=== PATIENT | female | born 1985 | race Caucasian/White ===

== ENCOUNTER 2019-08-21 11:46 | Emergency (ER) | payer OTHER ==
--- OUTSIDE RECORDS SUMMARY | 2019-08-21 12:13 | XMS REPORT | Continuity of Care Document ---
:1985 External Reference #:[id number] Author Name Catalina Villegas PA Address [address] [place] [id number] Problems Active Problems Provider Date Insomnia Felton Villanueva DO Onset: 08/25/2011 Gastroesophageal reflux disease Felton Villanueva DO Onset: 06/09/2011 Tobacco user Felton Villanueva DO Onset: 06/09/2011 Bipolar disorder Felton Villanueva DO Onset: 06/09/2011 Social History Type Date Description Comments Sex Unknown ETOH Use Occasionally consumes alcohol Recreational Drug Use Denies Drug Use Tobacco Use Start: Unknown Heavy tobacco smoker (more than 10 cigarettes/day) Smoking Status Reviewed: 02/11/19 Heavy tobacco smoker (more than 10 cigarettes/day) Allergies, Adverse Reactions, Alerts Active Allergies Reaction Severity Comments Date Morphine Nausea 06/09/2011 Dust 10/05/2014 Eggs N/V 10/06/2014 Medications Active Medications SIG Qnty Indications Ordering Date Provider Albuterol Sulfate HFA 2 puffs every 17gm R05 Felton Villanueva, 06/24/2019 4-6 hours as DO 108(90Base) mcg/Act needed for Aerosol cough, wheezing, shortness of breath Fluticasone Propionate two sprays in 16gm R05 Felton Villanueva, 06/24/2019 each nostril DO 50mcg/Act Suspension once daily Nicotine Transdermal Apply one patch 28units Felton Villanueva, 06/20/2019 System Step 1 every 24 hours DO 21mg/24HR Patches 24HR Hydroxyzine HCL 1/2 to 1 pill by 30tabs Felton Villanueva, 03/11/2019 25mg mouth every 6 DO Tablets hours as needed anxiety Lamotrigine ER Take One Tablet 30tabs Felton Villanueva, 01/31/2019 100mg By Mouth AT DO Tablets ER 24HR Bedtime Selenium Sulfide apply nightly to Unknown 01/26/2019 2.5% affected skin Lotion and wash off in in the morning x 2 weeks Drysol apply to axillae 60ml Felton Villanueva, 12/15/2018 20% Solution once daily at DO night Bupropion Hydrochloride take three 90tabs F33.1 Felton Villanueva, 12/14/2018 ER (XL) tablets by mouth DO 150mg Tablets ER every day 24HR Ketoconazole apply to rash on 60gm Felton Villanueva, 11/15/2018 2% Cream the torso 2-3 DO times a day for up to 2 weeks Cyclobenzaprine HCL take one tablet 30tabs Felton Villanueva, 10/28/2017 10mg by mouth at DO Tablets bedtime as needed for muscle spasm Amitriptyline HCL Take One Tablet 30tabs G47.00 Felton Villanueva, 05/07/2017 25mg By Mouth AT DO Tablets Bedtime Ibuprofen 1-2 by mouth OTC Joseph, 09/29/2014 200mg Tablets every 6 hours Yany, [employer] with food or snack as needed pain Nexplanon Unknown 68mg Implant History Medications Fluticasone 1 spray each 16units J30.9 Joseph, 02/11/2019 - Propionate nostril daily Yany, [employer] 06/24/2019 50mcg/Act Suspension Medications Administered in Office Medication SIG Qnty Indications Ordering Provider Date PPD Injection Schedule, Nurses 04/05/2019 Immunizations CPT Code Status Date Vaccine Lot # [id number] Given 04/08/2019 Afluria Imunization Q2035 Given 06/07/2018 Afluria Imunization 50210 Given 06/09/2011 Tdap (Adacel) Ages 7 And Above Only [address] Given 06/09/2011 Afluria Or Fluvirin Flu Vac Intramuscular Q2035 Refused 12/03/2017 Afluria Imunization Vital Signs Date Vital Result Comment 06/24/2019 9:20am Body Temperature 97.8 F Weight 136.00 lb Heart Rate 78 /min BP Systolic 108 mmHg BP Diastolic 60 mmHg Respiratory Rate 18 /min Height 61.25 inches 5'1.25" O2 % BldC Oximetry 97 % BMI (Body Mass Index) 25.5 kg/m2 06/20/2019 4:06pm Weight 134.00 lb Heart Rate 70 /min BP Systolic 98 mmHg BP Diastolic 60 mmHg Respiratory Rate 18 /min Height 61.25 inches 5'1.25" BMI (Body Mass Index) 25.1 kg/m2 Results Test Acquired Date Facility Test Result H/L Range Note Laboratory test 04/05/2019 [facility] Rubella Igg AB POSITIVE AI 1 finding Measles Igg AB POSITIVE AI 2 Mumps Igg (Immune) POSITIVE AI 3 Varicella Zost Igg POSITIVE AI 4 Hep B S AB Quant 140.3 mIU/mL 5 1 IgG antibody to Rubella detected. IgG antibody levels are at a level considered to indicate positive immunity. Unless otherwise specified, testing performed [place] [address] 2 IgG antibody to Measles detected. This may indicate that the patient was exposed to Measles through infection or vaccination. Unless otherwise specified, testing [place] [address] 3 IgG antibody to Mumps detected. This may indicate that the patient was exposed to Mumps through infection or vaccination. Unless otherwise specified, testing performed [place] [address] 4 IgG antibody to VZV detected. This may indicate that the patient was exposed to VZV through infection or vaccination. Unless otherwise specified, testing [place] [address] 5 A MINIMUM LEVEL OF 10 mIU/mL IS SUGGESTED TO INSURE COMPLETE IMMUNITY. IF NEGATIVE OR LESS THAN 10 mIU/mL AT 1 TO 2 MONTHS FOLLOWING THE FINAL DOSE OF THE HEP B VACCINE SERIES, REVACCINATION IS RECOMMENDED FOR SELECT PATIENT POPULATIONS (SEE MMWR 2018:67(1) AUG 28, 2017). Unless otherwise specified, testing performed [place] [address] Procedures Date Code Description Status 06/24/2019 30386 Measure Blood Oxygen Level Single Determination Completed 06/20/2019 57658 Omt 3-4 Body Regions Completed 04/11/2019 09791 Omt 3-4 Body Regions Completed 03/11/2019 65518 Omt 3-4 Body Regions Completed 01/31/2019 69519 Omt 3-4 Body Regions Completed Medical Devices Description No Information Available Encounters Type Date Location Provider Dx Diagnosis Office Visit 04/07/2019 [facility] Schedule, Nurses Z11.1 Encounter for 1:00p screening for respiratory tuberculosis Office Visit 03/11/2019 [facility] Felotn Villanueva DO F31.81 Bipolar II disorder 4:15p F33.1 Major depressive disorder, recurrent, moderate F17.210 Nicotine dependence, cigarettes, uncomplicated K21.9 Gastro-esophageal reflux disease without esophagitis G47.00 Insomnia, unspecified M54.9 Dorsalgia, unspecified R61 Generalized hyperhidrosis R19.7 Diarrhea, unspecified M99.02 Segmental and somatic dysfunction of thoracic region B36.0 Pityriasis versicolor Z68.25 Body mass index (BMI) 25.0-25.9, adult Office Visit 02/11/2019 1:45p [facility] Yany Ruiz, J30.9 Allergic rhinitis, [employer] unspecified J01.90 Acute sinusitis, unspecified Z72.0 Tobacco use Office Visit 01/31/2019 11:15a [facility] Felton Villanueva DO F31.81 Bipolar II disorder F33.1 Major depressive disorder, recurrent, moderate F17.210 Nicotine dependence, cigarettes, uncomplicated K21.9 Gastro-esophageal reflux disease without esophagitis G47.00 Insomnia, unspecified M54.9 Dorsalgia, unspecified R61 Generalized hyperhidrosis R19.7 Diarrhea, unspecified M99.02 Segmental and somatic dysfunction of thoracic region B36.0 Pityriasis versicolor Assessments Date Code Description Provider 06/24/2019 R05 Cough Catalina Villegas PA 06/24/2019 Z68.25 Body mass index (BMI) 25.0-25.9, adult Catalina Villegas PA 06/20/2019 F31.81 Bipolar II disorder Felton Villanueva DO 06/20/2019 F33.1 Major depressive disorder, recurrent, Felton Villanueva DO moderate 06/20/2019 F17.210 Nicotine dependence, cigarettes, Felton Villanueva DO uncomplicated 06/20/2019 K21.9 Gastro-esophageal reflux disease without Felton Villanueva DO esophagitis 06/20/2019 G47.00 Insomnia, unspecified Felton Villanueva DO 06/20/2019 M54.9 Dorsalgia, unspecified Felton Villanueva DO 06/20/2019 R61 Generalized hyperhidrosis Felton Villanueva, DO 06/20/2019 R19.7 Diarrhea, unspecified VillanuevaFelton, DO 06/20/2019 M99.02 Segmental and somatic dysfunction of VillanuevaFelton kincaid, DO thoracic region 06/20/2019 B36.0 Pityriasis versicolor Felton Villanueva, DO 06/20/2019 Z68.25 Body mass index (BMI) 25.0-25.9, adult Felton Villanueva, DO 04/11/2019 F31.81 Bipolar II disorder Felton Villanueva, DO 04/11/2019 F33.1 Major depressive disorder, recurrent, VillanuevaFelton, DO moderate 04/11/2019 F17.210 Nicotine dependence, cigarettes, Felton Villanueva, DO uncomplicated 04/11/2019 K21.9 Gastro-esophageal reflux disease without VillanuevaFelton, DO esophagitis 04/11/2019 G47.00 Insomnia, unspecified Felton Villanueva, DO 04/11/2019 M54.9 Dorsalgia, unspecified VillanuevaFelton, DO 04/11/2019 R61 Generalized hyperhidrosis Felton Villanueva, DO 04/11/2019 R19.7 Diarrhea, unspecified Villanueva, Felton, DO 04/11/2019 M99.02 Segmental and somatic dysfunction of VillanuevaFelton kincaid, DO thoracic region 04/11/2019 M99.01 Segmental and somatic dysfunction of VillanuevaFelton kincaid, DO cervical region 04/11/2019 M99.03 Segmental and somatic dysfunction of VillanuevaFelton kincaid, DO lumbar region 04/11/2019 B36.0 Pityriasis versicolor Felton Villanueva, DO 04/11/2019 Z68.26 Body mass index (BMI) 26.0-26.9, adult Felton Villanueva, DO 04/07/2019 Z11.1 Encounter for screening for respiratory VillanuevaFelton, tuberculosis 04/07/2019 Z11.1 Encounter for screening for respiratory Schedule, Nurses tuberculosis 04/05/2019 Z11.1 Encounter for screening for respiratory Villanueva Felton, DO tuberculosis 04/05/2019 Z11.59 Encounter for screening for other viral Felton Villanueva, diseases 04/05/2019 Z11.1 Encounter for screening for respiratory Schedule, Nurses tuberculosis 04/05/2019 Z11.59 Encounter for screening for other viral Schedule, Laboratory diseases 03/11/2019 F31.81 Bipolar II disorder Felton Villanueva, DO 03/11/2019 F33.1 Major depressive disorder, recurrent, Villanueva, Felton, DO moderate 03/11/2019 F17.210 Nicotine dependence, cigarettes, Villanueva, Felton, DO uncomplicated 03/11/2019 K21.9 Gastro-esophageal reflux disease without Villanueva, Felton, DO esophagitis 03/11/2019 G47.00 Insomnia, unspecified Villanueva, Felton, DO 03/11/2019 M54.9 Dorsalgia, unspecified Villanueva, Felton, DO 03/11/2019 R61 Generalized hyperhidrosis Villanueva Felton, DO 03/11/2019 R19.7 Diarrhea, unspecified Villanueva, Felton, DO 03/11/2019 M99.02 Segmental and somatic dysfunction of VillanuevaFelton, DO thoracic region 03/11/2019 B36.0 Pityriasis versicolor Villanueva, Felton, DO 03/11/2019 Z68.25 Body mass index (BMI) 25.0-25.9, adult Felton Villanueva, DO 02/11/2019 J30.9 Allergic rhinitis, unspecified Digiovanna, Yany, [employer] 02/11/2019 J01.90 Acute sinusitis, unspecified Digiovanna, Yany, [employer] 02/11/2019 Z72.0 Tobacco use Digiovanna, Yany, [employer] 01/31/2019 F31.81 Bipolar II disorder VillanuevaBonnieew, DO 01/31/2019 F33.1 Major depressive disorder, recurrent, Villanueva, Felton, DO moderate 01/31/2019 F17.210 Nicotine dependence, cigarettes, Villanueva, Felton, DO uncomplicated 01/31/2019 K21.9 Gastro-esophageal reflux disease without Villanueva, Felton, DO esophagitis 01/31/2019 G47.00 Insomnia, unspecified Villanueva, Felton, DO 01/31/2019 M54.9 Dorsalgia, unspecified Villanueva, Felton, DO 01/31/2019 R61 Generalized hyperhidrosis VillanuevaBonnieew, DO 01/31/2019 R19.7 Diarrhea, unspecified Villanueva, Felton, DO 01/31/2019 M99.02 Segmental and somatic dysfunction of Felton Villanueva DO thoracic region 01/31/2019 B36.0 Pityriasis versicolor Felton Villanueva DO Plan of Treatment Future Appointment(s):07/22/2019 4:15 pm - Felton Villanueva DO at [facility]06/24/2019 - Catalina Villegas PAR05 CoughNew Medication:Albuterol Sulfate HFA 108(90 Base) mcg/Act - 2 puffs every 4-6 hours as needed for cough, wheezing, shortness of breathFluticasone Propionate 50 mcg/Act - two sprays in each nostril once dailyComments:Suspect viral URIWill treat with albuterolFluticasone to help with PNDCall with worsening/persistentsymptomsFollow up:PrnZ68.25 Body mass index (BMI) 25.0-25.9, adult Functional Status Description No Information Available Mental Status Description No Information Available Referrals Description No Information Available
[2019-08-21 12:54] VITALS: BP 102/68
[2019-08-21 13:19] LABS: Influenza A Molecular NEGATIVE (Negative); Influenza B Molecular NEGATIVE (Negative)
--- NOTE | 2019-08-21 13:42 | UC ---
FLU HPI - HPI Summary HPI Summary: 34-year-old female who has had flulike symptoms over the past 3 days. - History of Current Complaint Chief Complaint: UCGeneralIllness Stated Complaint: FLULIKE SYMPTOMS Time Seen by Provider: 08/21/19 12:41 Hx Obtained From: Patient ?: No Onset/Duration: Gradual Onset Severity Currently: Mild Severity Initially: Mild Pain Intensity: 3 Associated Signs & Symptoms: Positive: Myalgia, Cough, Nasal Congestion - Allergy/Home Medications Allergies/Adverse Reactions: Allergies Allergy/AdvReac Type Severity Reaction Status Date / Time environmental Allergy Congestion Uncoded 08/21/19 12:54 Home Medications: Home Medications Amitriptyline TAB* [Elavil TAB*] 10 mg PO BEDTIME 08/21/19 [History Confirmed ] Cyclobenzaprine TAB* [Flexeril 10 MG TAB*] 10 mg PO DAILY 08/21/19 [History Confirmed 08/21/19] Etonogestrel [Nexplanon] 68 mg IMPLANT 08/21/19 [History] buPROPion TAB* [Wellbutrin TAB*] 200 mg PO DAILY 08/21/19 [History Confirmed 01/03] hydrOXYzine HCL TAB* [Atarax 25 MG TAB*] 25 mg PO QID PRN 08/21/19 [History Confirmed 08/21/19] lamoTRIgine TAB(*) [LaMICtal TAB(*)] 450 mg PO BEDTIME 08/21/19 [History Confirmed 08/21/19] PMH/Surg Hx/FS Hx/Imm Hx Previously Healthy: Yes - Surgical History Surgical History: Yes Surgery Procedure, Year, and Place: d&c. tonsilectomy. choley. hernia repair x 2 - Family History Known Family History: Positive: Non-Contributory - Social History Lives: With Family Alcohol Use: None Substance Use Type: None Smoking Status (MU): Current Every Day Smoker Amount Used/How Often: 3/4 ppd Length of Time of Smoking/Using Tobacco: 18years Have You Smoked in the Last Year: Yes Review of Systems All Other Systems Reviewed And Are Negative: Yes Constitutional: Positive: Chills ENT: Positive: Nasal Discharge, Sinus Congestion Respiratory: Positive: Cough - Dry nonproductive cough. Musculoskeletal: Positive: Myalgia Neurological: Positive: Headache - Occasional mild headache. Is Patient Immunocompromised?: No Physical Exam Triage Information Reviewed: Yes Appearance: Well-Appearing, No Pain Distress, Well-Nourished Vital Signs: Initial Vital Signs Temp 98.3 F 08/21/19 12:47 Pulse 67 08/21/19 12:47 Resp 18 08/21/19 12:47 BP 102/68 08/21/19 12:47 Pulse Ox 98 08/21/19 12:47 Vital Signs Reviewed: Yes Eyes: Positive: Conjunctiva Clear ENT: Positive: Pharynx normal, Nasal congestion, Nasal drainage - Clear nasal coryza, TMs normal, Sinus tenderness - Tender over the maxillary sinuses., Uvula midline Neck: Positive: Supple, Nontender, No Lymphadenopathy Respiratory: Positive: Lungs clear, Normal breath sounds, No respiratory distress, No accessory muscle use Cardiovascular: Positive: RRR, No Murmur, Pulses Normal, Brisk Capillary Refill Musculoskeletal Exam: Normal Musculoskeletal: Positive: Strength Intact, ROM Intact Neurological Exam: Normal Psychological Exam: Normal Skin Exam: Normal Flu Course/Dx - Course Course Of Treatment: Rapid flu test: Negative The patient is comfortable here and nontoxic. I believe she has a viral upper respiratory illness and she is to increase fluids and take whatever over-the- counter medication she prefers. Follow-up with her primary care provider in 3 or 4 days if no improvement. - Differential Dx/Diagnosis Provider Diagnosis: URI (upper respiratory infection) Discharge ED - Sign-Out/Discharge Documenting (check all that apply): Patient Departure All imaging exams completed and their final reports reviewed: No Studies - Discharge Plan Condition: Good Disposition: HOME Patient Education Materials: Upper Respiratory Infection (ED) Referrals: Felton Villanueva DO [Primary Care Provider] - Additional Instructions: Increase fluids, [id number] cold medicine as directed. Definite follow- up with your primary care provider in 3 or 4 days if no improvement. - Billing Disposition and Condition Condition: GOOD Disposition: Home
== END 2019-08-21 13:40 | disposition home or self-care (01) ==
LOC: UCCORT 11:46
DX: J06.9 Acute upper respiratory infection, unspecified (principal); Z91.09 Other allergy status, other than to drugs and biological substances; F17.210 Nicotine dependence, cigarettes, uncomplicated
CPT/HCPCS: 99211; G0463